=== PATIENT | male | born 1980 | race Caucasian/White ===

== ENCOUNTER 2020-03-27 16:04 | Emergency (ER) | payer OTHER ==
[2020-03-27 17:05] VITALS: BMI 27.8
[2020-03-27 17:37] VITALS: BP 139/66; PULSE 101; TEMP 99.3
== END 2020-03-27 18:31 | disposition home or self-care (01) ==
LOC: FER 16:04
DX: R07.89 Other chest pain (principal)
CPT/HCPCS: 71046-TC-FY; 93005; 99284-25

== ENCOUNTER 2024-01-07 13:42 | Emergency (ER) | payer OTHER ==
[2024-01-07 13:59] VITALS: BP 132/78; PULSE 98; RESP 16; TEMP 97.8; BMI 33.0
== END 2024-01-07 17:55 | disposition home or self-care (01) ==
LOC: FER 13:42
DX: R10.9 Unspecified abdominal pain (principal)
CPT/HCPCS: 74176-TC; 81003; 87086; 99284-25